=== PATIENT | male | born 1965 | race Two or more races ===

== ENCOUNTER 2020-11-22 14:44 | Emergency (ER) | payer OTHER ==
--- NOTE | 2020-11-22 15:28 | EDM.PDOC ---
ED HPI GENERAL MEDICAL PROBLEM - General Chief Complaint: Fever Stated Complaint: FEVER Time Seen by Provider: 11/22/20 14:50 Source of Information: Reports: Patient History Limitations: Reports: No Limitations - History of Present Illness INITIAL COMMENTS - FREE TEXT/NARRATIVE: Patient presents reporting fever and chills for 1 week. Patient states that he was out of doors without a jacket a week ago and after that his had a "fever" and chills. Patient has never checked his temperature with a thermometer. He reports body aches. No headaches, chest pain, cough, shortness of breath, sore throat, runny nose, nausea, dysuria. He has not lost his sense of taste or smell. He states that the chills and body aches keep him up at night. Has taken NyQuil and Tylenol. He does not smoke cigarettes or use recreational drugs, rare social alcohol use. He is otherwise healthy without chronic medical problems except psoriasis for which he takes Tremfya. He sees a spare hand carding in [place] for that. - Related Data Allergies Allergy/AdvReac Type Severity Reaction Status Date / Time No Known Allergies Allergy Verified 11/22/20 15:00 Home Meds: Home Meds Guselkumab [Tremfya] 100 mg SQ ASDIRECTED 11/22/20 [History] Past Medical History Dermatologic History: Reports: Psoriasis Social & Family History - Family History Family Medical History: No Pertinent Family History - Tobacco Use Tobacco Use Status *Q: Never Tobacco User - Caffeine Use Caffeine Use: Reports: None - Recreational Drug Use Recreational Drug Use: No ED ROS GENERAL - Review of Systems Review Of Systems: Comprehensive ROS is negative, except as noted in HPI. ED EXAM, GENERAL - Physical Exam Exam: See Below Exam Limited By: No Limitations General Appearance: Alert, No Apparent Distress Ears: Normal External Exam Nose: Normal Inspection Throat/Mouth: Normal Inspection Head: Atraumatic Neck: Normal Inspection Respiratory/Chest: No Respiratory Distress, Lungs Clear, Normal Breath Sounds Cardiovascular: Normal Peripheral Pulses, Regular Rate, Rhythm, No Murmur Back Exam: Normal Inspection Extremities: Normal Inspection Neurological: Alert, Oriented, Normal Cognition Psychiatric: Normal Affect, Normal Mood Skin Exam: Warm, Dry, Intact, Normal Color, No Rash, Other (moist) Lymphatic: No Adenopathy Course - Vital Signs Last Recorded V/S: Last Vital Signs Temp 37.6 C 11/22/20 14:57 Pulse 91 11/22/20 16:45 Resp 18 11/22/20 16:45 BP 119/82 11/22/20 16:45 Pulse Ox 94 L 11/22/20 16:45 - Orders/Labs/Meds Orders: Active Orders 24 hr Category Date Time Status Vital Signs [RC] Q15M Care 11/22/20 16:53 Ordered URINALYSIS W/MICROSCOPIC [UA W/MICROSCOPIC] [URIN] Stat Lab 11/22/20 15:12 Ordered Bamlanivimab 700 mg Med 11/22/20 16:53 Ordered Sodium Chloride 0.9% [Normal Saline] 250 ml IV ONETIME EPINEPHrine [EPINEPHrine 1:10,000] Med 11/22/20 16:53 Ordered 0.3 mg IM ONETIME PRN Famotidine [Pepcid] Med 11/22/20 16:53 Ordered 20 mg IVPUSH ONETIME PRN Sodium Chloride 0.9% [Saline Flush] Med 11/22/20 17:00 Ordered 30 ml FLUSH ASDIRECTED diphenhydrAMINE [Benadryl] Med 11/22/20 16:53 Ordered 50 mg IVPUSH ONETIME PRN methylPREDNISolone Sod Succ [Solu-MEDROL] Med 11/22/20 16:53 Ordered 125 mg IVPUSH ONETIME PRN Isolation [COMM] Routine Oth 11/22/20 15:11 Ordered Medication Orders Diphenhydramine HCl (Diphenhydramine 50 Mg/Ml Sdv) 50 mg IVPUSH ONETIME PRN PRN Reason: hypersensitivity reaction Epinephrine HCl (Epinephrine 1:10,000 1 Mg/10 Ml Syringe) 0.3 mg IM ONETIME PRN PRN Reason: hypersensitivity reaction Famotidine (Famotidine 20 Mg/2 Ml Sdv) 20 mg IVPUSH ONETIME PRN PRN Reason: hypersensitivity reaction Bamlanivimab 700 mg/ Sodium (Chloride) 270 mls @ 200 mls/hr IV ONETIME ONE; Protocol Stop: 11/22/20 18:13 Methylprednisolone Sodium Succinate (Methylprednisolone Sodium Succinate 125 Mg/2 Ml Sdv) 125 mg IVPUSH ONETIME PRN PRN Reason: hypersensitivity reaction Sodium Chloride (Sodium Chloride 0.9% 10 Ml Syringe) 30 ml FLUSH ASDIRECTED [facility] Labs: Laboratory Tests 0311/22/20 11/22/20 Range/Units 15:30 15:37 15:37 WBC 5.82 (4.0-11.0) K/uL RBC 4.91 (4.50-5.90) M/uL Hgb 16.9 (13.0-17.0) g/dL Hct 46.3 (38.0-50.0) % MCV 94.3 (80.0-98.0) fL MCH 34.4 H (27.0-32.0) pg MCHC 36.5 (31.0-37.0) g/dL RDW Std Deviation 42.5 (28.0-62.0) fl RDW Coeff of Myranda 12 (11.0-15.0) % Plt Count 136 L (150-400) K/uL MPV 9.40 (7.40-12.00) fL Neut % (Auto) 56.7 (48.0-80.0) % Lymph % (Auto) 30.8 (16.0-40.0) % Morrison % (Auto) 11.9 (0.0-15.0) % Eos % (Auto) 0.3 (0.0-7.0) % Baso % (Auto) 0.3 (0.0-1.5) % Neut # (Auto) 3.3 (1.4-5.7) K/uL Lymph # (Auto) 1.8 (0.6-2.4) K/uL Morrison # (Auto) 0.7 (0.0-0.8) K/uL Eos # (Auto) 0.0 (0.0-0.7) K/uL Baso # (Auto) 0.0 (0.0-0.1) K/uL Nucleated RBC % 0.0 /100WBC Nucleated RBCs # 0 K/uL Sodium 128 L (136-148) mmol/L Potassium 3.6 (3.5-5.1) mmol/L Chloride 96 L (98-107) mmol/L Carbon Dioxide 21.4 (21.0-32.0) mmol/L BUN 7 (7.0-18.0) mg/dL Creatinine 0.9 (0.8-1.3) mg/dL Est Cr Clr Drug Dosing 78.77 mL/min Estimated GFR (MDRD) > 60.0 ml/min Glucose 126 H (74-106) mg/dL Calcium 8.3 L (8.5-10.1) mg/dL Total Bilirubin 0.8 (0.2-1.0) mg/dL AST 184 H (15-37) IU/L ALT 181 H (14-63) IU/L Alkaline Phosphatase 128 H (46-116) U/L Total Protein 8.4 H (6.4-8.2) g/dL Albumin 3.4 (3.4-5.0) g/dL Globulin 5.0 H (2.6-4.0) g/dL Albumin/Globulin Ratio 0.7 L (0.9-1.6) Influenza Type A RNA NEGATIVE (NEGATIVE) Influenza Type B RNA NEGATIVE (NEGATIVE) SARS-CoV-2 RNA (ANURAG) POSITIVE H (NEGATIVE) Meds: Medications Generic Name Dose Route Start Last Admin Trade Name Freq PRN Reason Stop Dose Admin Diphenhydramine HCl 50 mg 11/22/20 16:53 Diphenhydramine 50 Mg/Ml Sdv IVPUSH ONETIME PRN hypersensitivity reaction Epinephrine HCl 0.3 mg 11/22/20 16:53 Epinephrine 1:10,000 1 Mg/10 Ml Syringe IM ONETIME PRN hypersensitivity reaction Famotidine 20 mg 11/22/20 16:53 Famotidine 20 Mg/2 Ml Sdv IVPUSH ONETIME PRN hypersensitivity reaction Bamlanivimab 700 mg/ Sodium 270 mls @ 200 mls/hr 11/22/20 16:53 Chloride IV 11/22/20 18:13 ONETIME ONE Protocol Methylprednisolone Sodium Succinate 125 mg 11/22/20 16:53 Methylprednisolone Sodium Succinate 125 Mg/2 Ml Sdv IVPUSH ONETIME PRN hypersensitivity reaction Sodium Chloride 30 ml 11/22/20 17:00 Sodium Chloride 0.9% 10 Ml Syringe FLUSH ASDIRECTED ALCON - Re-Assessments/Exams Free Text/Narrative Re-Assessment/Exam: 11/22/20 16:54 Patient states that he is under the care of a spare hand carding who checks his labs on a regular basis. He last had them checked last month. Departure - Departure Time of Disposition: 17:08 Disposition: Home, Self-Care 01 Condition: Good Clinical Impression: COVID-19 - Discharge Information Referrals: PCP,None [Primary Care Provider] - [facility] [Outside] [facility] [Outside] Forms: ED Department Discharge Additional Instructions: The following information is given to patients seen in the emergency department who are being discharged to home. This information is to outline your options for follow-up care. We provide all patients seen in our emergency department with a follow-up referral. The need for follow-up, as well as the timing and circumstances, are variable depending upon the specifics of your emergency department visit. If you don't have a primary care physician on staff, we will provide you with a referral. We always advise you to contact your personal physician following an emergency department visit to inform them of the circumstance of the visit and for follow-up with them and/or the need for any referrals to a consulting specialist. The emergency department will also refer you to a specialist when appropriate. This referral assures that you have the opportunity for follow-up care with a specialist. All of these measure are taken in an effort to provide you with optimal care, which includes your follow-up. Under all circumstances we always encourage you to contact your private physician who remains a resource for coordinating your care. When calling for follow-up care, please make the office aware that this follow-up is from your r ecent emergency room visit. If for any reason you are refused follow-up, please contact the [facility] Emergency Department at and asked to speak to the emergency department charge nurse. 1. Home quarantine for the next 7 days or according to state health department guidelines 2. Will be called tomorrow morning to arrange an infusion of a medication that may decrease the length and severity of COVID-19. 3. Return promptly for shortness of breath, vomiting and not keeping down oral fluids, severe diarrhea Sepsis Event Note (ED) - Evaluation Sepsis Screening Result: Possible Sepsis Risk - Focused Exam Vital Signs: Vital Signs Temp Pulse Resp BP Pulse Ox 11/22/20 16:45 91 18 119/82 94 L 11/22/20 14:57 37.6 C 103 H 18 136/90 95 - My Orders Last 24 Hours: My Active Orders 11/22/20 15:11 Isolation [COMM] Routine 11/22/20 15:12 URINALYSIS W/MICROSCOPIC [UA W/MICROSCOPIC] [URIN] Stat 11/22/20 16:53 Vital Signs [RC] Q15M Bamlanivimab 700 mg Sodium Chloride 0.9% [Normal Saline] 250 ml IV ONETIME EPINEPHrine [EPINEPHrine 1:10,000] 0.3 mg IM ONETIME PRN Famotidine [Pepcid] 20 mg IVPUSH ONETIME PRN diphenhydrAMINE [Benadryl] 50 mg IVPUSH ONETIME PRN methylPREDNISolone Sod Succ [Solu-MEDROL] 125 mg IVPUSH ONETIME PRN 11/22/20 17:00 Sodium Chloride 0.9% [Saline Flush] 30 ml FLUSH ASDIRECTED - Assessment/Plan Last 24 Hours: My Active Orders 11/22/20 15:11 Isolation [COMM] Routine 11/22/20 15:12 URINALYSIS W/MICROSCOPIC [UA W/MICROSCOPIC] [URIN] Stat 11/22/20 16:53 Vital Signs [RC] Q15M Bamlanivimab 700 mg Sodium Chloride 0.9% [Normal Saline] 250 ml IV ONETIME EPINEPHrine [EPINEPHrine 1:10,000] 0.3 mg IM ONETIME PRN Famotidine [Pepcid] 20 mg IVPUSH ONETIME PRN diphenhydrAMINE [Benadryl] 50 mg IVPUSH ONETIME PRN methylPREDNISolone Sod Succ [Solu-MEDROL] 125 mg IVPUSH ONETIME PRN 11/22/20 17:00 Sodium Chloride 0.9% [Saline Flush] 30 ml FLUSH ASDIRECTED
[2020-11-22 16:04] LABS: BLOOD UREA NITROGEN,BUN 7 mg/dL (7.0-18.0); CARBON DIOXIDE,CO2 21.4 mmol/L (21.0-32.0); CHLORIDE,CL 96 mmol/L (98-107); GLUCOSE RANDOM 126 mg/dL (74-106); POTASSIUM,K 3.6 mmol/L (3.5-5.1); SODIUM,NA 128 mmol/L (136-148)
[2020-11-22 16:13] LABS: CORONAVIRUS COVID-19 NAA POSITIVE (NEGATIVE); INFLUENZA A NAA NEGATIVE (NEGATIVE); INFLUENZA B NAA NEGATIVE (NEGATIVE)
--- NOTE | 2020-11-22 16:13 | CR ---
INDICATION: Fever and chills. TECHNIQUE: Chest 2 views. COMPARISON: None. FINDINGS: No focal consolidation, pleural effusion, or pneumothorax. Normal heart size and pulmonary vascularity. Degenerative changes of the spine. IMPRESSION: No acute cardiopulmonary findings. Dictated by Mechelle Barcenas MD @ Nov 22 2020 4:11PM Signed by Dr. Mechelle Barcenas @ Nov 22 2020 4:12PM
[2020-11-22] MEDS ORDERED: Famotidine 20 MG/2 ML SDV IVPUSH PRN (16:53)
[2020-11-22] MEDS ORDERED: diphenhydrAMINE 50 MG/ML SDV IVPUSH PRN (16:53)
[2020-11-22] MEDS ORDERED: EPINEPHrine 1:10,000 1 MG/10 ML Syringe IM PRN (16:53)
[2020-11-22] MEDS ORDERED: methylPREDNISolone Sodium Succinate 125 MG/2 ML SDV IVPUSH PRN (16:53)
[2020-11-22] MEDS ORDERED: Sodium Chloride 0.9% 10 ML Syringe FLUSH SCH (17:00)
== END 2020-11-22 18:11 | disposition home or self-care (01) ==
LOC: MW.ED 14:44
DX: U07.1 COVID-19 (principal)
CPT/HCPCS: 0240U; 36415; 71046; 80053; 81001; 85025; 99283